=== PATIENT | male | born 1965 | race Two or more races ===

== ENCOUNTER 2018-06-21 10:09 | Inpatient (IN) | payer OTHER ==
[2018-06-21] MEDS: ASPIRIN 81 MG TAB PO (10:59)
[2018-06-21] MEDS: SOD CHLORIDE 0.9% 1,000 ML IV (11:00)
[2018-06-21 11:06] LABS: WHITE BLOOD COUNT 7.1 10^3/ul (4.8-10.8)
[2018-06-21 11:06] LABS: ADD MAN DIFF? NO; BASOPHIL # 0.1 10^3/ul (0.0-0.1); BASOPHILS % 0.7 % (0.0-2.0); EOSINOPHILS # 0.3 10^3/ul (0.0-0.5); EOSINOPHILS % 3.5 % (0.0-7.0); HEMATOCRIT 50.2 % (42.0-52.0); HEMOGLOBIN 17.4 g/dl (14.0-18.0); LYMPHOCYTES # 2.9 10^3/ul (0.8-2.9); LYMPHOCYTES % 40.6 % (15.0-51.0); MEAN CORPUSCULAR HEMOGLOBIN 30.2 pg (29.0-33.0); MEAN CORPUSCULAR HGB CONC 34.7 g/dl (32.0-37.0); MEAN CORPUSCULAR VOLUME 87.2 fl (82.0-101.0); MEAN PLATELET VOLUME 12.9 fl (7.4-10.4); MONOCYTE # 0.5 10^3/ul (0.3-0.9); MONOCYTES % 7.4 % (0.0-11.0); NEUTROPHIL # 3.4 10^3/ul (1.6-7.5); NEUTROPHILS % 47.5 % (39.0-77.0); PLATELET COUNT 150 10^3/UL (140-415); RED BLOOD COUNT 5.76 10^6/ul (4.70-6.10)
[2018-06-21] MEDS: PROPRANOLOL 40 MG TAB PO (11:18)
[2018-06-21 11:24] LABS: ALANINE AMINOTRANSFERASE 74 IU/L (13-69); ALBUMIN 4.6 g/dl (3.3-4.9); ALBUMIN/GLOBULIN RATIO 1.48; ALKALINE PHOSPHATASE 82 IU/L (42-121); ANION GAP 9 (5-13); ASPARTATE AMINO TRANSFERASE 45 IU/L (15-46); BILIRUBIN,INDIRECT 0.8 mg/dl (0-1.1); BILIRUBIN,TOTAL 0.8 mg/dl (0.2-1.3); BLOOD UREA NITROGEN 17 mg/dl (7-20); CARBON DIOXIDE 28 mmol/L (21-31); CHLORIDE 107 mmol/L (97-110); CREATININE 1.09 mg/dl (0.61-1.24); Estimated GFR > 60 mL/min (>60); GLUCOSE 95 mg/dl (70-220); LIPASE 224 U/L (23-300); SODIUM 144 mmol/L (135-144); TOTAL PROTEIN 7.7 g/dl (6.1-8.1)
[2018-06-21 11:36] LABS: TROPONIN-I < 0.012 ng/ml (0.000-0.120)
[2018-06-21 11:41] LABS: FREE T3 6.75 pg/ml (2.77-5.27)
[2018-06-21 11:56] LABS: B-TYPE NATRIURETIC PEPTIDE 649 PG/ML (0-125); THYROID STIMULATING HORMONE < 0.015 MIU/L (0.465-4.680)
[2018-06-21 13:24] LABS: FREE T4 (FREE THYROXINE) 2.09 ng/dl (0.64-1.79)
[2018-06-21] MEDS ORDERED: ONDANSETRON 4 MG INJ IV (16:30)
[2018-06-21] MEDS ORDERED: ACETAMINOPHEN 325 MG TAB PO (16:30)
[2018-06-21] MEDS ORDERED: NACL 0.9% 3 ML SYG IV (16:30)
[2018-06-21] MEDS: METHIMAZOLE 5 MG TAB PO (16:59)
[2018-06-21] MEDS: THIAMINE 200 MG INJ IM (16:59)
[2018-06-21 17:08] LABS: HEMOGLOBIN A1C 5.1 % (0-5.9)
[2018-06-21] MEDS: NADOLOL 40 MG TAB PO (17:47)
[2018-06-21] MEDS: METOPROLOL 25 MG TAB PO (22:00)
[2018-06-22] MEDS: traZODone 50 MG TAB PO (02:23)
[2018-06-22 06:48] LABS: ADD MAN DIFF? NO
[2018-06-22 06:52] LABS: WHITE BLOOD COUNT 8.5 10^3/ul (4.8-10.8)
[2018-06-22 06:52] LABS: BASOPHIL # 0.1 10^3/ul (0.0-0.1); BASOPHILS % 0.6 % (0.0-2.0); EOSINOPHILS # 0.4 10^3/ul (0.0-0.5); EOSINOPHILS % 4.8 % (0.0-7.0); HEMATOCRIT 50.7 % (42.0-52.0); HEMOGLOBIN 17.3 g/dl (14.0-18.0); LYMPHOCYTES # 3.6 10^3/ul (0.8-2.9); LYMPHOCYTES % 42.3 % (15.0-51.0); MEAN CORPUSCULAR HEMOGLOBIN 30.1 pg (29.0-33.0); MEAN CORPUSCULAR HGB CONC 34.1 g/dl (32.0-37.0); MEAN CORPUSCULAR VOLUME 88.3 fl (82.0-101.0); MONOCYTE # 0.7 10^3/ul (0.3-0.9); MONOCYTES % 8.2 % (0.0-11.0); NEUTROPHIL # 3.7 10^3/ul (1.6-7.5); NEUTROPHILS % 43.9 % (39.0-77.0); PLATELET COUNT 151 10^3/UL (140-415); RED BLOOD COUNT 5.74 10^6/ul (4.70-6.10); RED CELL DISTRIBUTION WIDTH 13.2 % (11.5-14.5)
[2018-06-22 07:25] LABS: CHOL/HDL RATIO 5.9 RATIO; CHOLESTEROL 166 mg/dl (100-200); HDL CHOLESTEROL 28 mg/dl (28-71); LDL CHOLESTEROL,CALCULATED 113 mg/dl; MAGNESIUM 1.9 mg/dl (1.7-2.5); TRIGLYCERIDES 127 mg/dl (0-149)
[2018-06-22 07:25] LABS: PHOSPHORUS 4.7 mg/dl (2.5-4.9)
[2018-06-22 07:30] LABS: CREATINE KINASE 100 IU/L (23-200)
[2018-06-22 07:33] LABS: ALANINE AMINOTRANSFERASE 70 IU/L (13-69); ALBUMIN/GLOBULIN RATIO 1.25; ALKALINE PHOSPHATASE 79 IU/L (42-121); ANION GAP 8 (5-13); ASPARTATE AMINO TRANSFERASE 40 IU/L (15-46); BILIRUBIN,INDIRECT 1.2 mg/dl (0-1.1); BILIRUBIN,TOTAL 1.2 mg/dl (0.2-1.3); BLOOD UREA NITROGEN 18 mg/dl (7-20); CALCIUM 10.4 mg/dl (8.4-10.2); CARBON DIOXIDE 30 mmol/L (21-31); CHLORIDE 106 mmol/L (97-110); CREATININE 1.05 mg/dl (0.61-1.24); Estimated GFR > 60 mL/min (>60); GLUCOSE 83 mg/dl (70-220); SODIUM 144 mmol/L (135-144); TOTAL PROTEIN 7.2 g/dl (6.1-8.1)
[2018-06-22 07:38] LABS: CK INDEX 0.9; CK-MB 0.94 ng/ml (0.0-2.4); TROPONIN-I < 0.012 ng/ml (0.000-0.120)
[2018-06-22] MEDS: THIAMINE 100 MG TAB PO (08:44)
[2018-06-22] MEDS: METHIMAZOLE 5 MG TAB PO (08:45)
[2018-06-22] MEDS: ENOXAPARIN 40 MG/0.4 ML SYG SC (09:11)
[2018-06-22 10:28] LABS: INR 1.12; PROTIME 14.5 Sec (11.9-14.9); PT RATIO 1.1
[2018-06-22] MEDS: METOPROLOL 25 MG TAB PO ×2 (10:28→21:05)
[2018-06-22 18:21] LABS: HEPATITIS B SURFACE ANTIGEN NEGATIVE (NEGATIVE)
[2018-06-22 18:59] LABS: HEPATITIS C VIRAL ANTIBODY REACTIVE (NEGATIVE)
[2018-06-22] MEDS ORDERED: APIXABAN 5 MG TABLET PO (21:00)
[2018-06-23] MEDS: traZODone 50 MG TAB PO (00:46)
[2018-06-23 06:21] LABS: ADD MAN DIFF? NO
[2018-06-23 06:27] LABS: WHITE BLOOD COUNT 8.2 10^3/ul (4.8-10.8)
[2018-06-23 06:27] LABS: BASOPHIL # 0.1 10^3/ul (0.0-0.1); BASOPHILS % 0.6 % (0.0-2.0); EOSINOPHILS # 0.5 10^3/ul (0.0-0.5); EOSINOPHILS % 5.5 % (0.0-7.0); HEMOGLOBIN 17.7 g/dl (14.0-18.0); LYMPHOCYTES # 3.3 10^3/ul (0.8-2.9); LYMPHOCYTES % 39.9 % (15.0-51.0); MEAN CORPUSCULAR HEMOGLOBIN 29.8 pg (29.0-33.0); MEAN CORPUSCULAR VOLUME 87.5 fl (82.0-101.0); MEAN PLATELET VOLUME 12.6 fl (7.4-10.4); MONOCYTE # 0.7 10^3/ul (0.3-0.9); MONOCYTES % 8.1 % (0.0-11.0); NEUTROPHIL # 3.7 10^3/ul (1.6-7.5); NEUTROPHILS % 45.7 % (39.0-77.0); PLATELET COUNT 137 10^3/UL (140-415); RED BLOOD COUNT 5.94 10^6/ul (4.70-6.10); RED CELL DISTRIBUTION WIDTH 12.9 % (11.5-14.5)
[2018-06-23 06:43] LABS: INR 1.12; PROTIME 14.5 Sec (11.9-14.9); PT RATIO 1.1
[2018-06-23 06:44] LABS: PARTIAL THROMBOPLASTIN TIME 28.6 Sec (23.0-35.0)
[2018-06-23 06:55] LABS: ALANINE AMINOTRANSFERASE 65 IU/L (13-69); ALBUMIN 3.9 g/dl (3.3-4.9); ALBUMIN/GLOBULIN RATIO 1.14; ALKALINE PHOSPHATASE 79 IU/L (42-121); ANION GAP 11 (5-13); ASPARTATE AMINO TRANSFERASE 39 IU/L (15-46); BILIRUBIN,INDIRECT 0.7 mg/dl (0-1.1); BILIRUBIN,TOTAL 0.7 mg/dl (0.2-1.3); BLOOD UREA NITROGEN 18 mg/dl (7-20); CALCIUM 9.8 mg/dl (8.4-10.2); CARBON DIOXIDE 22 mmol/L (21-31); CHLORIDE 109 mmol/L (97-110); CREATININE 0.97 mg/dl (0.61-1.24); Estimated GFR > 60 mL/min (>60); GLUCOSE 100 mg/dl (70-220); POTASSIUM 3.9 mmol/L (3.5-5.1); SODIUM 142 mmol/L (135-144); TOTAL PROTEIN 7.3 g/dl (6.1-8.1)
[2018-06-23 07:11] LABS: PHOSPHORUS 4.7 mg/dl (2.5-4.9)
[2018-06-23 07:11] LABS: MAGNESIUM 1.9 mg/dl (1.7-2.5)
[2018-06-23] MEDS: LISINOPRIL 5 MG TAB PO (09:14)
[2018-06-23] MEDS: METHIMAZOLE 5 MG TAB PO (09:14)
[2018-06-23] MEDS: THIAMINE 100 MG TAB PO (09:14)
[2018-06-23] MEDS: METOPROLOL 25 MG TAB PO (09:14)
[2018-06-23] MEDS: PROPOFOL 20 ML (12:21)
[2018-06-23] MEDS: LIDOCAINE 2% (SDV) 5 ML INJ (12:21)
[2018-06-23] MEDS ORDERED: ONDANSETRON 4 MG INJ IV (12:30)
[2018-06-23] MEDS ORDERED: HYDROmorphONE 1 MG/5 ML IV SYRINGE IV ×3 (12:30→13:30)
[2018-06-23] MEDS: CIPROFLOXACIN 400MG/D5W 0 ML (12:57)
[2018-06-23] MEDS: FENTAnyl 50 MCG/ML VIAL (12:59)
[2018-06-23] MEDS: ETOMIDATE 20 MG INJ (12:59)
[2018-06-23] MEDS ORDERED: LABETALOL HCL 20MG INJ (13:23)
[2018-06-23] MEDS ORDERED: FENTAnyl 50 MCG/ML VIAL IV (13:30)
[2018-06-23] MEDS: LABETALOL HCL 20MG INJ IV (13:44)
[2018-06-23] MEDS ORDERED: traZODone 50 MG TAB PO (21:00)
[2018-06-24] MEDS ORDERED: PANTOPRAZOLE (EC) 40 MG TAB PO (06:00)
== END 2018-06-23 17:01 | disposition home or self-care (01) | DRG 309 ==
LOC: TEL 06-22 00:24 → E/R 10:09 → TEL 13:47
PROC: 0DB68ZX Excision of Stomach, Via Natural or Artificial Opening Endoscopic, Diagnostic (ICD-10-PCS; principal; 2018-06-23 11:45)
DX: I48.91 Unspecified atrial fibrillation (principal); I85.10 Secondary esophageal varices without bleeding; E05.90 Thyrotoxicosis, unspecified without thyrotoxic crisis or storm; B18.2 Chronic viral hepatitis C; K74.60 Unspecified cirrhosis of liver; F10.10 Alcohol abuse, uncomplicated; I42.9 Cardiomyopathy, unspecified; E21.3 Hyperparathyroidism, unspecified; Z87.891 Personal history of nicotine dependence; K29.70 Gastritis, unspecified, without bleeding; K26.9 Duodenal ulcer, unspecified as acute or chronic, without hemorrhage or perforation
CPT/HCPCS: 36415; 71045; 80053; 80061; 82550; 82553; 83036; 83690; 83735; 83880; 84100; 84439; 84443; 84481; 84484; 85025; 85610; 85651; 85730; 86803; 87340; 88305; 88312; 93005; 93306; 99285-25